=== PATIENT | female | born 1950 | race Two or more races ===

== ENCOUNTER 2024-03-24 18:45 | Inpatient (IN) | payer OTHER ==
[~2024-03-24] VITALS: Ht 172.7 cm; Wt 80.7 kg
[~2024-03-24 18:45] MED LIST: CIPR-173 PO; PHEN-922 PO; ZOFR4T PO
[2024-03-24 20:19] LABS: Basophils # (auto) 0.1 10 ^3/uL (0-0.2); Basophils % (auto) 0.8 % (0.0-2.0); Eosinophils # (auto) 0.2 10 ^3/uL (0-0.8); Hematocrit 43.8 % (36.0-46.0); Hemoglobin 15.4 g/dL (12.2-16.2); Lymphocytes # (auto) 3.1 10 ^3/uL (0.4-5.4); Lymphocytes % (auto) 37.6 % (10.0-50.0); Mean Corpuscular Hgb Conc. 35.2 g/dL (32.0-36.0); Mean Corpuscular Volume 88.2 fL (80.0-100.0); Monocytes # (auto) 0.7 10 ^3/uL (0-1.3); Monocytes % (auto) 8.5 % (0.0-12.0); Neutrophils # (auto) 4.2 10 ^3/uL (1.6-8.6); Neutrophils % (auto) 51.1 % (37.0-80.0); Nucleated Red Blood Cells % 0.2 %; Red Blood Cells 4.97 10^6/uL (4.0-5.20); Red Cell Distribution Width 14.2 % (11.8-14.3); White Blood Cell 8.2 10^3/uL (4.4-10.8)
[2024-03-24 20:34] LABS: Chloride 111 mmol/L (98-107); Potassium 4.4 mmol/L (3.5-5.1); Sodium 143 mmol/L (136-145)
[2024-03-24 20:35] LABS: Anion Gap 10 (5-15); Calcium 9.3 mg/dL (8.7-10.4); Carbon Dioxide 22 mmol/L (20-30)
[2024-03-24 20:40] LABS: BUN/Creatinine Ratio 16.4 (10.0-20.0); Blood Urea Nitrogen 11 mg/dL (9-23); Glucose 84 mg/dL (74-106)
[2024-03-24 20:41] LABS: Magnesium 2.1 mg/dL (1.6-2.6)
[2024-03-24] MEDS: IOHEXOL 350 MG/ML 100ML IJ ONE (23:08)
[2024-03-24] MEDS ORDERED: DEXTROSE (50%) 50ML SYRG IV PRN (23:45)
[2024-03-24] MEDS ORDERED: MORPHINE SULFATE INJ 2 MG/ml SYRG IV PRN (23:45)
[2024-03-24] MEDS ORDERED: NITROGLYCERIN 0.4 MG SL TAB SL PRN (23:45)
[2024-03-25] VITALS (8 sets, daily range): BP systolic 102–131; BP diastolic 61–89; PULSE 55–102; RESP 12–20; TEMP 97.8–98.4; O2SAT 92–96
[2024-03-25] MEDS: GABAPENTIN 100 MG CAP PO ONE (00:24)
[2024-03-25] MEDS: ACETAMINOPHEN 325 MG TAB PO PRN (04:04)
[2024-03-25 04:33] LABS: Chloride 110 mmol/L (98-107); Potassium 3.8 mmol/L (3.5-5.1); Sodium 143 mmol/L (136-145)
[2024-03-25 04:34] LABS: Anion Gap 9 (5-15); Carbon Dioxide 24 mmol/L (20-30)
[2024-03-25 04:39] LABS: BUN/Creatinine Ratio 13.6 (10.0-20.0); Blood Urea Nitrogen 8 mg/dL (9-23); Glucose 88 mg/dL (74-106)
[2024-03-25] MEDS: InsuLIN REG 1unit/0.01ml Soln (100units/ml) SC SCH (07:00)
[2024-03-25] MEDS: ACCU-CHEK COMFORT CURVE STRIP VI SCH (07:26)
[2024-03-25] MEDS: HYDROmorphone HCL 2 MG/ML VL/or syr IV PRN (08:26)
[2024-03-25] MEDS: levETIRAcetam 500 MG TAB PO SCH (08:27)
[2024-03-25] MEDS: GABAPENTIN 100 MG CAP PO SCH (08:27)
[2024-03-25] MEDS: ATENOLOL 25 MG TAB PO SCH (08:27)
[2024-03-25] MEDS: ASPirin 81 mg TAB PO SCH (08:27)
[2024-03-25] MEDS ORDERED: TICAGRELOR 90 MG TAB PO SCH (08:30)
[2024-03-25] MEDS: PHENYTOIN SODIUM 100 MG CAP PO SCH (08:30)
[2024-03-25] MEDS: ONDANSETRON HCL 4 MG/2 ML VIAL IV PRN (08:30)
[2024-03-25] MEDS: ENOXAPARIN SOD 40 MG/0.4 ML SYRINGE SC SCH (08:31)
[2024-03-25] MEDS ORDERED: TICAGRELOR 90 MG TAB GT SCH (10:00)
[2024-03-25 11:35] LABS: Hepatitis B Surface Antigen Negative (Negative)
[2024-03-25 11:56] LABS: Hepatitis C Antibody Negative (Negative)
[2024-03-25] MEDS: NIFEdipine ER 30 MG TAB PO ONE (16:25)
[2024-03-25] MEDS: MORPHINE SULF 15mg ER tab PO SCH (16:26)
[2024-03-25] MEDS ORDERED: LEVE750T3 PO (16:46)
[2024-03-25] MEDS ORDERED: TICA90TA PO (16:46)
[2024-03-25] MEDS ORDERED: ATEN-60 PO (16:46)
[2024-03-25] MEDS ORDERED: MIRT1TAB38 PO (16:46)
[2024-03-25] MEDS ORDERED: ATOR-47 PO (16:46)
[2024-03-25] MEDS ORDERED: ASPI81CH49 PO (16:46)
[2024-03-25] MEDS ORDERED: LISI10TA34 PO (16:46)
[2024-03-25] MEDS ORDERED: LACO1TAB PO (16:46)
[2024-03-25] MEDS ORDERED: GLIP5TAB21 PO (16:46)
[2024-03-25] MEDS ORDERED: PHEN50CH8 PO (16:46)
[2024-03-25 19:41] LABS: Alanine Aminotransferase 27 U/L (7-40); Alkaline Phosphatase 142 U/L (46-116); Anion Gap 8 (5-15); Aspartate Aminotransferase 23 U/L (13-40); BUN/Creatinine Ratio 13.3 (10.0-20.0); Blood Urea Nitrogen 10 mg/dL (9-23); Calcium 9.2 mg/dL (8.7-10.4); Carbon Dioxide 26 mmol/L (20-30); Chloride 104 mmol/L (98-107); Glucose 228 mg/dL (74-106); Potassium 4.2 mmol/L (3.5-5.1); Sodium 138 mmol/L (136-145)
[2024-03-25 19:42] LABS: Bilirubin, Total 0.7 mg/dL (0.2-1.0); Total Protein 7.1 g/dL (5.7-8.2)
[2024-03-25] MEDS: TICAGRELOR 90 MG TAB PO SCH (21:10)
[2024-03-25] MEDS: ATORVASTATIN 20 MG TAB PO SCH (21:13)
[2024-03-26] VITALS (9 sets, daily range): BP systolic 93–103; BP diastolic 60–70; PULSE 51–90; RESP 16–20; TEMP 98.6–99.1; O2SAT 93–95
[2024-03-26] MEDS ORDERED: HYDR8TAB46 PO (02:31)
[2024-03-26] MEDS ORDERED: ESCI1TAB36 PO (02:33)
[2024-03-26] MEDS ORDERED: [UNRECOGNIZED DRUG - CODE] PO (02:43)
[2024-03-26] MEDS: ADENOSINE 69 MG in GIVE UN-DILUTED 0 ML IV ONE (08:37)
[2024-03-26] MEDS: NIFEdipine ER 30 MG TAB PO SCH (10:00)
[2024-03-27 01:00] VITALS: BP 112/71; PULSE 73; RESP 20; TEMP 98.1; O2SAT 91
[2024-03-27 05:00] VITALS: BP 122/72; PULSE 62; RESP 18; TEMP 99.1; O2SAT 97
[2024-03-27 08:00] VITALS: PULSE 76; PULSE 86; RESP 18; O2SAT 94
[2024-03-27 09:45] VITALS: BP 137/83; PULSE 76; RESP 18; TEMP 98.6; O2SAT 94
[2024-03-27 12:34] VITALS: BP 139/90; PULSE 63; RESP 18; TEMP 98.6; O2SAT 96
[2024-03-27 14:25] VITALS: BP 139/90; PULSE 62; RESP 18; TEMP 98.6; O2SAT 96
== END 2024-03-27 14:17 | disposition home or self-care (01) | DRG 206 ==
LOC: ER 18:45 → TELE 23:45 → TELE-EAST 03-25 09:10
PROVIDERS: ADMIT Nurse Practitioner; ATTEND Internal Medicine
DX: M94.0 Chondrocostal junction syndrome [Tietze] (principal); I10 Essential (primary) hypertension; I71.21 Aneurysm of the ascending aorta, without rupture; I25.10 Atherosclerotic heart disease of native coronary artery without angina pectoris; E11.40 Type 2 diabetes mellitus with diabetic neuropathy, unspecified; Z86.73 Personal history of transient ischemic attack (TIA), and cerebral infarction without residual deficits; Z82.49 Family history of ischemic heart disease and other diseases of the circulatory system; Z87.891 Personal history of nicotine dependence
CPT/HCPCS: 36415; 70450; 71046; 71275; 78452; 80048; 80053; 80185; 82962; 83735; 83880; 84484; 85025; 86803; 87081; 87340; 93005; 93017; 93306; 93971; 96372; 96374; 96375; G0378; J0153; J1815; J2405

== ENCOUNTER 2025-07-25 13:32 | Emergency (ER) | payer OTHER ==
[~2025-07-25] VITALS: Ht 170.2 cm; Wt 68.0 kg
[~2025-07-25 13:32] MED LIST changes: +ASPI81CH49 PO; +ATEN-60 PO; +ATOR-47 PO; -CIPR-173 PO; +ESCI1TAB36 PO; +GLIP5TAB21 PO; +LACO1TAB PO; +LEVE750T3 PO; +LISI10TA34 PO; +MIRT1TAB38 PO; +PHEN50CH8 PO; +TICA90TA PO
--- NOTE | 2025-07-25 14:03 | ED.PDOC ---
History of Present Illness HPI Comments 74-year-old female presents to the ED via EMS with a chief complaint of headache onset 2 days. Per EMS. patient fell 3 days ago, hit her head. 2 days ago, she began experiencing right-sided headache, dizziness, nausea, worsened today. Patient has tried at home remedies to relief pain, took Morphine, with no improvement of symptoms. Denies numbness/tingling, fever, chills, chest pain, shortness of breath, vomiting, diarrhea, dysuria. No other symptoms or modifying factors present at this time. Chief Complaint: Headache Time Seen by MD: 13:50 Primary Care Provider: NONE Reviewed Notes: Medications, Allergies Allergies: Coded Allergies: NO KNOWN ALLERGIES (Unverified , 09/27/23) Home Meds Active Scripts Ondansetron Odt 4MG Tab (ZOFRAN PO) 4 Mg Tb, 1 TAB PO Q8HPRN PRN, #20 TAB ODT TAB-DISSOLVE IN MOUTH, THEN SWALLOW as needed for nausea vomiting Prov:ROWENA MARTINEZ Q [employer] 09/27/23 Phenazopyridine HCl (Phenazopyridine Hydrochlo) 200 Mg Tab, 1 TAB PO TID for 3 Days, #9 TAB Prov:ROWENA MARTINEZ Q [employer] 09/27/23 Reported Medications Escitalopram Oxalate (ESCITALOPRAM OXALATE) 10 Mg Tab, 10 MG PO DAILY, TAB 03/26/24 Lisinopril (Lisinopril) 10 Mg Tab, 10 MG PO DAILY, MG 03/25/24 Phenytoin (PHENYTOIN) 50 Mg Chw, 50 MG PO TID, TAB.CHEW 03/25/24 Lacosamide (Lacosamide 50 mg) 1 Tab Tab, 1 TAB PO BID, TAB 03/25/24 Aspirin (Aspirin) 81 Mg Chw, 81 MG PO DAILY, TAB.CHEW 03/25/24 Levetiracetam (Levetiracetam) 750 Mg Tab, 2 TAB PO BID, TAB 03/25/24 Atorvastatin Calcium (ATORVASTATIN CALCIUM) 80 Mg Tab, 80 MG PO HS, TAB 03/25/24 Glipizide (Glipizide) 5 Mg Tab, 5 MG PO BIDAC, MG 03/25/24 Mirtazapine (Mirtazapine Oral Disintegrating Tablet) 15 Mg Tab, 15 MG PO HS, TAB 03/25/24 Ticagrelor Base (BRILINTA) 90 Mg Tab, 90 MG PO BID, TAB 03/25/24 Atenolol (Atenolol) 25 Mg Tab, 25 MG PO DAILY, MG 03/25/24 Information Source: Patient, Emergency Med Personnel Mode of Arrival: EMS Severity: Moderate Timing: Days Duration: Since onset Prehospital treatment: Pain Meds Past Medical History PAST MEDICAL HISTORY: CVA, DM, HTN, Seizures Surgical History: Denies all surgeries ANIMAL ATTENDANT History: No Pertinent ANIMAL ATTENDANT History Family History Family History: Unknown Social History Smoker: Non-Smoker Alcohol: Denies ETOH Use Drugs: Denies Drug Use Lives In: Home Constitutional: denies: chills, diaphoresis, fatigue, fever, malaise, sweats, weakness, others EENTM: denies: blurred vision, double vision, ear bleeding, ear discharge, ear drainage, ear pain, ear ringing, eye pain, eye redness, hearing loss, mouth pain, mouth swelling, nasal discharge, nose bleeding, nose congestion, nose pain, photophobia, tearing, throat pain, throat swelling, voice changes, others Respiratory: denies: cough, hemoptysis, orthopnea, SOB at rest, shortness of breath, SOB with excertion, stridor, wheezing, others Cardiovascular: denies: chest pain, dizzy spells, diaphoresis, Dyspnea on exertion, edema, irregular heart beat, left arm pain, lightheadedness, palpitations, PND, syncope, others Gastrointestinal: reports: nausea; denies: abdomen distended, abdominal pain, blood streaked bowels, constipated, diarrhea, dysphagia, difficulty swallowing, hematemesis, melena, poor appetite, poor fluid intake, rectal bleeding, rectal pain, vomiting, others Genitourinary: denies: abnormal vagina bleeding, burning, dyspareunia, dysuria, flank pain, frequency, hematuria, incontinence, pain, , vagina discharge, urgency, others Neurological: reports: headache; denies: dizziness, fainting, left sided numbness, left sided weakness, numbness, paresthesia, pre-existing deficit, right sided numbness, right sided weakness, seizure, speech problems, tingling, tremors, weakness, others Musculoskeletal: denies: back pain, gout, joint pain, joint swelling, muscle pain, muscle stiffness, neck pain, others Integumetry: denies: bruises, change in color, change in hair/nails, dryness, laceration, lesions, lumps, rash, wounds, others Allergic/Immunocompromised: denies: Difficulty Healing, Frequent Infections, Hives, Itching, others Hematologic/Lymphatic: denies: anemia, blood clots, easy bleeding, easy bruising, swollen glands, others Endocrine: denies: excessive hunger, excessive sweating, excessive thirst, excessive urination, flushing, intolerance to cold, intolerance to heat, unexplained weight gain, unexplained weight loss, others Psychiatric: denies: anxiety, bipolar disorder, depression, hopeless, panic disorder, schizophrenia, sleepless, suicidal, others All Other Systems: Reviewed and Negative Physical Exam General Appearance: Normal HEENT: Normal ENT Inspection, Pharynx Normal, TMs Normal Neck: Full Range of Motion, Non-Tender, Normal, Normal Inspection Respiratory: Chest Non-Tender, Lungs Clear, No Accessory Muscle Use, No Respiratory Distress, Normal Breath Sounds Cardiovascular: No Edema, No JVD, No Murmur, No Gallop, Normal Peripheral Pulses, Regular Rate/Rhythm Breast Exam: Deferred Gastrointestinal: No Organomegaly, Non Tender, No Pulsatile Mass, Normal Bowel Sounds, Soft Genitalia: Deferred Pelvic: Deferred Rectal: Deferred Extremities: No calf tenderness, Normal capillary refill, Normal inspection, Normal range of motion, Non-tender, No pedal edema Musculoskeletal : Apperance: Normal Neurologic: Alert, manager corporate communications II-XII nml as Tested, No Motor Deficits, Normal Affect, Normal Mood, No Sensory Deficits Cerebellar Function: Normal Reflexes: Normal Skin: Dry, Normal Color, Warm Lymphatic: No Adenopathy Was a procedure done? Was a procedure done?: No Differential Dx Considerations may include: Migraine, tension, intracranial abnormality X-Ray, Labs, Meds, VS Vital Signs Date Time Temp Pulse Resp B/P (MAP) Pulse Ox O2 Delivery O2 Flow Rate FiO2 07/25/25 13:51 97.8 78 12 156/90 (112) 98 97.8 07/25/25 13:45 56 07/25/25 13:32 97.8 78 12 156/90 98 97.8 Lab Test 07/25/25 15:22 07/25/25 14:26 Range/Units Troponin I High Sensitivity < 3 L < 3 L </=34 ng/L White Blood Count 7.2 4.4-10.8 10^3/uL Red Blood Count 5.08 4.0-5.20 10^6/uL Hemoglobin 15.5 12.2-16.2 g/dL Hematocrit 46.0 36.0-46.0 % Mean Corpuscular Volume 90.5 80.0-100.0 fL Mean Corpuscular Hemoglobin 30.5 28.0-32.0 pg Mean Corpuscular Hemoglobin Concent 33.7 32.0-36.0 g/dL Red Cell Distribution Width 13.5 11.8-14.3 % Platelet Count 278 140-450 10^3/uL Mean Platelet Volume 8.4 6.9-10.8 fL Neutrophils (%) (Auto) 56.3 37.0-80.0 % Lymphocytes (%) (Auto) 33.1 10.0-50.0 % Monocytes (%) (Auto) 7.9 0.0-12.0 % Eosinophils (%) (Auto) 1.5 0.0-7.0 % Basophils (%) (Auto) 1.2 0.0-2.0 % Neutrophils # (Auto) 4.1 1.6-8.6 10 ^3/uL Lymphocytes # (Auto) 2.4 0.4-5.4 10 ^3/uL Monocytes # (Auto) 0.6 0-1.3 10 ^3/uL Eosinophils # (Auto) 0.1 0-0.8 10 ^3/uL Basophils # (Auto) 0.1 0-0.2 10 ^3/uL Nucleated Red Blood Cells 0.1 % Sodium Level 143 136-145 mmol/L Potassium Level 3.6 3.5-5.1 mmol/L Chloride Level 106 98-107 mmol/L Carbon Dioxide Level 28 20-31 mmol/L Anion Gap 9 5-15 Blood Urea Nitrogen 8 L 9-23 mg/dL Creatinine 0.68 0.550-1.02 mg/dL Glomerular Filtration Rate Calc 90 >90 mL/min BUN/Creatinine Ratio 11.8 10.0-20.0 Serum Glucose 156 H 74-106 mg/dL Calcium Level 9.3 8.7-10.4 mg/dL [facility] [id number] [place] [id number] Ph: [phone] DIAGNOSTIC IMAGING Diagnostic Imaging Report : [id number] Signed PATIENT: DARRICK HERT: [id number] UNIT: [id number] : 1950 LOC: ER ROOM / BED: / AGE / SEX: 74 / F ADM STATUS: REG ER SERVICE 1346 ORDERING PHYSICIAN: BIA MURRAY MD PROCEDURE(s): HWOCT - HEAD WITHOUT CONTRAST REASON: weakness ORDER NUMBER(s): [id number], ACCESSION NUMBER(s): [id number] EXAM: CT HEAD WITHOUT CONTRAST INDICATION: weakness COMPARISON: CT HEAD WITHOUT CONTRAST on DOS: 03/24/24 ; only report was available at the time of dictation TECHNIQUE: CT of the head without intravenous contrast. Radiation Dose Information: CT Dose: CTDI volume is 55 mGy. Dose-length product is 1086 mGy*cm The dose indicators for CT are the volume Computed Tomography (CT) Dose Index (CTDIvol) and the Dose Length Product (DLP), and are measured in units of mGy and mGy-cm, respectively. These indicators are not patient dose, but values generated from the CT scanner acquisition factors. The report includes radiation exposure data for exposures received during this examination. Findings: Scattered hypoattenuation in the periventricular and subcortical white matter, suggestive of chronic microvascular disease. The ventricles and sulci are mildly enlarged, compatible with generalized parenchymal volume loss. There is no mass- effect, hemorrhage, midline shift, or abnormal extra-axial fluid collection visible. No calvarial fracture. Postsurgical changes suggestive of right temporal craniotomy, with probable aneurysm clip in the basal cisterns. There is a peripherally calcified 2.7 cm lesion adjacent to the aneurysm clip. Essentially clear visualized paranasal sinuses. Mastoid air cells are clear. IMPRESSION: No acute intracranial hemorrhage or mass effect. Postsurgical changes likely related to aneurysmal clipping. Adjacent 2.5 cm peripherally calcified lesion likely represents adjacent aneurysm, possibly thrombosed. Recommend CTA head for further evaluation to exclude underlying residual/recurrent aneurysmal sac. ATED BY: NAYAN MULLEN MD DICTATED DATE/TIME: 07/25/25 1537 SIGNED BY: NAYAN MULLEN MD SIGNED DATE/TIME: 07/25/25 1536 CC: Time of 1ST Reevaluation: 14:20 Reevaluation 1ST: Unchanged Patient Education/Counseling: Diagnosis, Treatment, Prognosis Family Education/Counseling: No Family Present SEPSIS Sepsis Screen Date sepsis recognized/suspect: Jul 25, 2025 Time Sepsis recognized/suspect: 1346 Recent Procedure: No On Antibiotic Therapy: No Respiratory Rate >20: No Heart Rate >90: No Temp<36 C (96.8 F) or >38.3 C: No SBP <90 or MAP <65 mmHG: No New Acute Mental Status Change: No Is the patient on CPAP, BIPAP,: No Physician Orders Head Without Contrast (07/25/25 13:46) Urinalysis (07/25/25 13:46) Chest Portable (07/25/25 13:46) Electrocardigram (07/25/25 13:46) Electrocardigram (07/25/25 14:46) Electrocardigram (07/25/25 16:46) Sodium Chloride 0.9% (07/25/25 17:00) Metoclopramide Injection (Reglan Injecti (07/25/25 17:00) Vital Signs Date Time Temp Pulse Resp B/P (MAP) Pulse Ox O2 Delivery O2 Flow Rate FiO2 07/25/25 13:51 97.8 78 12 156/90 (112) 98 97.8 07/25/25 13:45 56 07/25/25 13:32 97.8 78 12 156/90 98 97.8 Laboratory Tests Test 07/25/25 14:26 White Blood Count 7.2 10^3/uL (4.4-10.8) Departure 1 Departure Time of Disposition: 17:24 (Patient likely with a migraine. Patient is feeling significantly better. We will discharge patient home) Impression: Primary Impression: Migraine Additional Impression: Fall Disposition: HOME / SELF CARE / HOMELESS Condition: Stable Additional Instructions: You likely had a migraine. You received medications in the ER. You can take tylenol and motrin as needed for pain. You should stay well rested and well hydrated. It is important to follow up with your regular doctor within one week. If your symptoms worsen or you have any other concerns then please return to the ER. Discharged With: Self Critical Care Note Critical Care Time?: No Stability Stability form required: No Heart Score Heart Score: Heart Score Response (Comments) Value History N/A 0 EKG N/A 0 Age N/A 0 Risk Factors N/A 0 Troponin N/A 0 Total 0 I personally scribed for BIA MURRAY MD ([email or web address]) on 07/25/25 at 14:03. Electronically submitted by Anabel Ordonez ([email or web address]). I personally scribed for BIA MURRAY MD ([email or web address]) on 07/25/25 at 16:07. Electronically submitted by Anabel Ordonez ([email or web address]). BIA MURRAY MD Jul 25, 2025 14:03
[2025-07-25 14:40] LABS: Hematocrit 46.0 % (36.0-46.0); Hemoglobin 15.5 g/dL (12.2-16.2); Mean Corpuscular Hemoglobin 30.5 pg (28.0-32.0); Mean Corpuscular Volume 90.5 fL (80.0-100.0); Nucleated Red Blood Cells % 0.1 %
[2025-07-25 14:42] LABS: Chloride 106 mmol/L (98-107); Potassium 3.6 mmol/L (3.5-5.1); Sodium 143 mmol/L (136-145)
[2025-07-25 14:43] LABS: Anion Gap 9 (5-15); Calcium 9.3 mg/dL (8.7-10.4); Carbon Dioxide 28 mmol/L (20-31)
[2025-07-25 14:48] LABS: BUN/Creatinine Ratio 11.8 (10.0-20.0)
[2025-07-25 14:54] LABS: Blood Urea Nitrogen 8 mg/dL (9-23); Glucose 156 mg/dL (74-106)
--- NOTE | 2025-07-25 15:38 | DVH ---
EXAM: CT HEAD WITHOUT CONTRAST INDICATION: weakness COMPARISON: CT HEAD WITHOUT CONTRAST on DOS: 03/24/24 ; only report was available at the time of dictation TECHNIQUE: CT of the head without intravenous contrast. Radiation Dose Information: CT Dose: CTDI volume is 55 mGy. Dose-length product is 1086 mGy*cm The dose indicators for CT are the volume Computed Tomography (CT) Dose Index (CTDIvol) and the Dose Length Product (DLP), and are measured in units of mGy and mGy-cm, respectively. These indicators are not patient dose, but values generated from the CT scanner acquisition factors. The report includes radiation exposure data for exposures received during this examination. Findings: Scattered hypoattenuation in the periventricular and subcortical white matter, suggestive of chronic microvascular disease. The ventricles and sulci are mildly enlarged, compatible with generalized parenchymal volume loss. There is no mass- effect, hemorrhage, midline shift, or abnormal extra-axial fluid collection visible. No calvarial fracture. Postsurgical changes suggestive of right temporal craniotomy, with probable aneurysm clip in the basal cisterns. There is a peripherally calcified 2.7 cm lesion adjacent to the aneurysm clip. Essentially clear visualized paranasal sinuses. Mastoid air cells are clear. IMPRESSION: No acute intracranial hemorrhage or mass effect. Postsurgical changes likely related to aneurysmal clipping. Adjacent 2.5 cm peripherally calcified lesion likely represents adjacent aneurysm, possibly thrombosed. Recommend CTA head for further evaluation to exclude underlying residual/recurrent aneurysmal sac.
--- NOTE | 2025-07-25 15:40 | DVH ---
CLINICAL HISTORY: weakness TECHNIQUE: Single view of the chest was obtained. COMPARISON: CT CT ANGIO CHEST CONTRAST on DOS: 03/24/24, XY CHEST TWO VIEWS ROUTINE on DOS: 03/24/24 FINDINGS: The heart size is mildly enlarged with pulmonary vascular congestion. There are patchy bibasilar opacities. IMPRESSION: Pulmonary vascular congestion. Patchy bibasilar opacities, favor atelectasis.
[2025-07-25] MEDS: SODIUM CHLORIDE 0.9% 1,000 ML IV ONE (18:43)
[2025-07-25] MEDS: METOCLOPRAMIDE HCL 5MG/ml INJ 2ml VIAL IV ONE (18:43)
[2025-07-25] MEDS: ACETAMINOPHEN 325 MG TAB PO ONE (18:43)
[2025-07-25] MEDS: KETOROLAC TROMETH 30 MG/ML 1ML VIAL IV ONE (18:43)
[2025-07-25 19:45] VITALS: BP 150/81; PULSE 60; RESP 14; TEMP 97.9; O2SAT 96
--- NOTE | 2025-07-26 10:24 | ECG ---
[facility] Test Date: 2025-07-25 Test Time: 13:45:50 Pat Name: HARLAN HER Department: Room: Gender: F Pulmonology Technician: PANTERA : 1950 Requested By: BIA MURRAY Order Number: [id number] Reading MD: Navin Bowen Measurements Intervals [place] Rate: 56 P: 64 [place]: 190 QRS: 80 QRSD: 90 T: 76 QT: 428 QTc: 414 Interpretive Statements Sinus rhythm Baseline wander in lead(s) V3 Electronically Signed On 07-28-2025 19:22:16 PST by Navin Bowen Please click the below link to view image of tracing.
== END 2025-07-25 19:49 | disposition home or self-care (01) ==
LOC: EDBD 13:32 → EDSEX 13:32 → ER 13:32
DX: G43.909 Migraine, unspecified, not intractable, without status migrainosus (principal); I10 Essential (primary) hypertension; E11.9 Type 2 diabetes mellitus without complications; Z79.82 Long term (current) use of aspirin; Z79.899 Other long term (current) drug therapy; Z86.73 Personal history of transient ischemic attack (TIA), and cerebral infarction without residual deficits
CPT/HCPCS: 36415; 70450; 71045; 80048; 82947; 84484; 85025; 93005; 96361; 96374; 96375; 99284; J1885; J2765; J7030